=== PATIENT | female | born 1945 | race Caucasian/White ===

== ENCOUNTER 2017-03-09 07:12 | Emergency (ER) | payer OTHER, MEDICARE ==
[2017-03-09 07:28] VITALS: BP 141/78; PULSE 69; RESP 16; TEMP 98.2; O2SAT 94
--- NOTE | 2017-03-09 07:38 | EDPHY ---
H & P Stated Complaint: low back pain sp trip 02/26 Time Seen by Provider: 03/09/17 07:26 HPI/ROS: Chief Complaint: Back pain HPI: 72-year-old woman was on a cruise in [place] on the of this month is when she was walking down some stairs. At the promised she put her foot on inclined landing which caused her to lose her footing and she twisted and fell pill rolling her right back. She has been having persistent lower back pain since that time. She did have some hydrocodone with that she took with minimal relief. She has also been icing it. She [place] the [place] last [place] is presenting today for evaluation. Denies any urinary or bowel symptoms. No numbness or weakness. Is ambulating without difficulty. Pain right now is primarily in her lower back. Does not radiate to her legs. It is described as aching. No abdominal pain. The sensation is normal. ROS: 10 point Review of Systems is negative except as noted in the HPI. PMH: Asthma, hypertension Medications: Amlodipine, hydrochlorothiazide Allergies: No known drug allergies Social History: No smoking, occasional alcohol, no recreational drug use Family History: non-contributory Physical Exam: Gen: Awake, Alert, No Distress HEENT: Nose: no rhinorrhea Eyes: PERRLA, EOMI Mouth: Moist mucosa Neck: Supple, no JVD Chest: nontender, lungs clear to auscultation Heart: S1, S2 normal, no murmur Abd: Soft, non-tender, no guarding Back: no CVA tenderness, no midline tenderness mild right lower paraspinal lumbar tenderness to deep palpation Ext: no edema, non-tender, she has no lumbar pain with full range of motion bilateral lower extremities. She is able to right straight raise bilateral legs against resistance. Sensations intact in all dermatomes. She has 5 in 5 strength in all flexors and extensors of her bilateral lower extremities. Skin: no rash Neuro: CN II-XII intact, Sensation grossly intact, Strength 5/5 in bilateral upper and lower extremities, - Personal History Current Tetanus Diphtheria and Acellular Pertussis (TDAP): Yes - Medical/Surgical History Hx Asthma: Yes Hx Chronic Respiratory Disease: No Hx Diabetes: No Hx Cardiac Disease: No Hx Renal Disease: No Hx Cirrhosis: No Hx Alcoholism: No Hx HIV/AIDS: No Hx Splenectomy or Spleen Trauma: No Other PMH: HTN. Laminectomy L4L5. SKIN CANCER REMOVAL/ NOSE ON - Social History Smoking Status: Former smoker Constitutional: Initial Vital Signs Temperature (C) 36.8 C 03/09/17 07:26 Heart Rate 69 03/09/17 07:26 Respiratory Rate 16 03/09/17 07:26 Blood Pressure 141/78 H 03/09/17 07:26 O2 Sat (%) 94 03/09/17 07:26 O2 Delivery Mode Room Air Allergies/Adverse Reactions: No Known Allergies Allergy (Verified 03/09/17 07:26) Home Medications: Medication Instructions Recorded Amlodipine Besylate 07/04/15 Hydrochlorothiazide 07/04/15 Medical Decision Making - Diagnostics Imaging Results: Lumbar spine x-ray shows a mild anterior compression of L1 of uncertain age, otherwise no acute findings per my interpretation. Imaging: I viewed and interpreted images myself ED Course/Re-evaluation: 72-year-old with low back pain status post fall. She has a mild compression of L1 but she does not have any tenderness at this point I suspect that is old. No other new acute findings. Have given instructions for ibuprofen exercises. Follow up with primary care physician in several days for re-evaluation, return for worsening. She has not have any neurologic symptoms. There are no red flags for acute cauda equina syndrome or infection. She is otherwise well- appearing and completely neurologically intact. Departure - Departure Disposition: Home, Routine, Self-Care Clinical Impression: Lumbar strain Condition: Good Instructions: Low Back Strain (ED), Lower Back Exercises (ED), Core Strengthening Exercises (ED) Additional Instructions: You may take ibuprofen, 600 mg 3 times a day. Take antiacid such as famotidine while you're taking ibuprofen. Perform the low back exercises as outlined in her discharge paperwork Follow up with primary care physician in 2-4 days for further evaluation. Return to the emergency department for new numbness or weakness, dark black stools, upper abdominal pain, nausea vomiting, or any concerns. Referrals: HAYDER,UNKNOWN [Other] - As per Instructions
== END 2017-03-09 08:10 | disposition home or self-care (01) ==
LOC: CED 07:12
DX: S39.012A Strain of muscle, fascia and tendon of lower back, initial encounter (principal); J45.909 Unspecified asthma, uncomplicated; I10 Essential (primary) hypertension; Z87.891 Personal history of nicotine dependence; Z85.828 Personal history of other malignant neoplasm of skin; W18.39XA Other fall on same level, initial encounter; W19.XXXA Unspecified fall, initial encounter; Y99.8 Other external cause status; Y93.01 Activity, walking, marching and hiking
CPT/HCPCS: 72100-PO